=== PATIENT | male | born 1980 | race Caucasian/White ===

== ENCOUNTER 2022-03-25 09:41 | Emergency (ER) | payer OTHER ==
[2022-03-25 10:31] LABS: BASOPHILS # (AUTO) 0.1 10^3/uL (0.0-0.1); BASOPHILS % (AUTO) 0.7 %; EOSINOPHILS # (AUTO) 0.1 10^3/uL (0.0-0.7); HCT - HEMATOCRIT 44.5 % (42.0-52.0); HGB - HEMOGLOBIN 14.7 g/dL (14.0-18.0); LYMPHOCYTES # (AUTO) 2.4 10^3/uL (1.5-3.5); LYMPHOCYTES % (AUTO) 34.6 %; MEAN CORPUSCULAR HEMOGLOBIN 28.5 pg (27.0-31.0); MEAN CORPUSCULAR VOLUME 86.4 fL (80.0-94.0); MEAN PLATELET VOLUME 9.8 fL (7.4-11.4); MONOCYTES # (AUTO) 0.6 10^3/uL (0.0-1.0); MONOCYTES % (AUTO) 8.8 %; NEUTROPHILS # (AUTO) 3.8 10^3/uL (1.5-6.6); NEUTROPHILS % (AUTO) 54.6 %; PLT - PLATELET COUNT 266 10^3/uL (130-450); RED BLOOD COUNT 5.15 10^6/uL (4.70-6.10); RED CELL DISTRIBUTION WIDTH 12.5 % (12.0-15.0)
[2022-03-25 10:46] LABS: ALBUMIN 5.2 g/dL (3.2-5.5); ALBUMIN/GLOBULIN RATIO 1.5 (1.0-2.2); BILIRUBIN,TOTAL 0.8 mg/dL (0.2-1.0); CALCIUM 10.3 mg/dL (8.5-10.3); CREATININE 1.1 mg/dL (0.6-1.2); TOTAL PROTEIN 8.7 g/dL (6.7-8.2)
--- NOTE | 2022-03-25 12:04 | ED Physician Documentation ---
PD HPI ABD PAIN - Stated complaint Stated Complaint: ABD PX - Chief complaint Chief Complaint: Abd Pain - History obtained from History obtained from: Patient - History of Present Illness Timing - onset: How many years ago (6) Timing - duration: Years (6) Quality: Aching, Sharp, Pain Location: RUQ Radiation: Other (Occasionally will radiate towards the back.) Associated symptoms: No: Fever, Nausea, Vomiting, Hematemesis, Diarrhea, Constipation Recently seen: Not recently seen - Additional information Additional information: Patient is a 41-year-old male, active duty [employer] who presents to the emergency department the right upper quadrant pain for the past 6 years. He states he has been seen by [employer] [facility] twice and had 2 negative ultrasounds. He states that occasionally he feels a small bulge in his right upper abdomen that goes away when he presses on it. Nothing seems to make it better or worse. No change with food. No difficulty breathing. No vomiting or diarrhea. No constipation. Has not on medications at home. He states he tried to make an appointment at the [employer] and they directed him to the emergency department for further evaluation today. Review of Systems Constitutional: denies: Fever, Chills GI: denies: Nausea, Vomiting, Diarrhea Skin: denies: Rash Musculoskeletal: denies: Neck pain, Back pain Neurologic: denies: Headache PD PAST MEDICAL HISTORY - Past Medical History Past Medical History: No - Past Surgical History Past Surgical History: No - Present Medications Home Medications: Ambulatory Orders Medication Instructions Recorded Confirmed No Known Home Medications 03/25/22 03/25/22 - Allergies Allergies/Adverse Reactions: Allergies Allergy/AdvReac Type Severity Reaction Status Date / Time No Known Drug Allergies Allergy Verified 03/25/22 10:13 - Living Situation Living Arrangement: reports: At home - Social History Does the pt have substance abuse?: No - Family History Family history: reports: Non contributory PD ED PE NORMAL - Vitals Vital signs reviewed: Yes - General General: Alert and oriented X 3, No acute distress - HEENT HEENT: Moist mucous membranes - Neck Neck: Supple, no meningeal sign - Cardiac Cardiac: RRR - Respiratory Respiratory: No respiratory distress, Clear bilaterally - Abdomen Abdomen: Normal bowel sounds, Soft, Non tender, Non distended - Derm Derm: Warm and dry, No rash - Extremities Extremities: No edema, No calf tenderness / cord - Neuro Neuro: Alert and oriented X 3 Results - Vitals Vitals: Vital Signs - 24 hr 03/25/22 03/25/22 10:08 12:57 Temperature 37.3 C Heart Rate 65 78 Respiratory 16 20 Rate Blood Pressure 129/80 126/78 O2 Saturation 98 100 Oxygen O2 Source Room air - Labs Labs: Laboratory Tests 03/25/22 03/25/22 03/25/22 10:17 10:27 10:27 WBC 7.0 RBC 5.15 Hgb 14.7 Hct 44.5 MCV 86.4 MCH 28.5 MCHC 33.0 RDW 12.5 Plt Count 266 MPV 9.8 Neut # (Auto) 3.8 Lymph # (Auto) 2.4 [place] # (Auto) 0.6 Eos # (Auto) 0.1 Baso # (Auto) 0.1 Absolute Nucleated RBC 0.00 Nucleated RBC % 0.0 Sodium 141 Potassium 4.0 Chloride 102 Carbon Dioxide 31 Anion Gap 8.0 BUN 18 Creatinine 1.1 Estimated GFR (MDRD) 75 L Glucose 82 Calcium 10.3 Total Bilirubin 0.8 AST 23 ALT 27 Alkaline Phosphatase 50 Total Protein 8.7 H Albumin 5.2 Globulin 3.5 Albumin/Globulin Ratio 1.5 Lipase 36 Urine Color YELLOW Urine Clarity CLEAR Urine pH 5.5 Ur Specific [place] 1.025 Urine Protein NEGATIVE Urine Glucose (UA) NEGATIVE Urine Ketones NEGATIVE Urine Occult Blood NEGATIVE Urine Nitrite NEGATIVE Urine Bilirubin NEGATIVE Urine Urobilinogen 0.2 (NORMAL) Ur Leukocyte Esterase NEGATIVE Ur Microscopic Review NOT INDICATED Urine Culture Comments NOT INDICATED - Rads (name of study) CT abdomen pelvis Radiology: Final report received, EMP read contemporaneously, See rad report (No acute abnormality) PD MEDICAL DECISION MAKING - ED course Complexity details: reviewed results, re-evaluated patient, considered differential, d/w patient ED course: Patient is well-appearing, nontoxic. Afebrile. Unclear etiology of his 6 years worth of abdominal pain. Recommend that he follow-up with his doctor for further care. No acute findings on laboratory testing or CT scan. No evidence of hernia on exam currently though he does describe intermittent "bulges" that resolved with pressing on them. Patient is tolerating p.o. without difficulty. Patient counseled regarding signs and symptoms for which I believe and urgent re-evaluation would be necessary. Patient with good understanding of and agreement to plan and is comfortable going home at this time This document was made in part using voice recognition software. While efforts are made to proofread this document, sound alike and grammatical errors may occur. Departure - Departure Disposition: 01 Home, Self Care Clinical Impression: Abdominal pain Qualifiers: Abdominal location: unspecified location Qualified Code(s): R10.9 - Unspecified abdominal pain Condition: Good Instructions: ED Abdominal Pain Unkn Cause Male Follow-Up: your,doctor in 1 week [Other] Comments: [place]. It could be that you have a small hernia in that area that occasionally contains fat that would be causing your pain. This would explain the lump as well. Please follow-up with your doctor for further care. Your laboratory testing and CT scan are normal today. Discharge Date/Time: 03/25/22 13:00
[2022-03-25 12:32] LABS: BILIRUBIN,URINE NEGATIVE (NEGATIVE); GLUCOSE, URINE (UA) NEGATIVE (NEGATIVE); KETONES,URINE (UA) NEGATIVE (NEGATIVE); LEUKOCYTE ESTERASE, URINE NEGATIVE (NEGATIVE); NITRITE,URINE NEGATIVE (NEGATIVE); OCCULT BLOOD,URINE NEGATIVE (NEGATIVE); PH,URINE 5.5 PH (5.0-7.5); PROTEIN,URINE NEGATIVE (NEGATIVE); UROBILINOGEN,URINE 0.2 (NORMAL) E.U./dL (NORMAL)
[2022-03-25 12:43] LABS: CLARITY,URINE CLEAR (CLEAR)
--- NOTE | 2022-03-25 12:44 | CT Report ---
PROCEDURE: CT abdomen and pelvis with contrast INDICATIONS: RUQ abd pain, neg US x 2 CONTRAST: IV CONTRAST: Optiray 320 ml: 100 PO CONTRAST: *NO PO CONTRAST TECHNIQUE: After the administration of contrast, 5 mm thick sections acquired from the diaphragms to the sym physis. 5 mm thick coronal and sagittal reformats were acquired. For radiation dose reduction, the following was used: automated exposure control, adjustment of mA and/or kV according to patient size . COMPARISON: None. FINDINGS: Image quality: Excellent. ABDOMEN: Lung bases: Lung bases are clear. Heart size is normal. Solid organs: Liver and spleen are normal in size and enhancement. Gallbladder unremarkable. Bilia ry system is non dilated. Pancreas enhances normally. No adrenal nodules. Kidneys demonstrate norm al size and enhancement, without hydronephrosis. Peritoneum and bowel: Bowel loops demonstrate normal wall thickness and caliber. No free fluid or a ir. Nodes and vessels: No retroperitoneal or mesenteric adenopathy by size criteria. Aorta and inferior vena cava are normal in size. Miscellaneous: No ventral hernias. PELVIS: Genitourinary: Bladder wall thickness is normal. Miscellaneous: No inguinal hernias or adenopathy. Bones: No suspicious bony lesions. No vertebral body compression fractures. IMPRESSION: Normal CT of the abdomen and pelvis with contrast Reviewed by: Kirk Gilliland MD on 03/25/2022 11:43 AM DEBBY Approved by: Kirk Gilliland MD on 03/25/2022 11:43 AM DEBBY Station ID: [id number]
[2022-03-25 12:59] VITALS: BP 126/78
== END 2022-03-25 13:00 | disposition home or self-care (01) ==
LOC: ED 09:41
DX: R10.11 Right upper quadrant pain (principal)
CPT/HCPCS: 36415; 74177; 80053; 81003; 83690; 85025; 99282; 99284; Q9967; 81001; 87086

== ENCOUNTER 2022-12-29 09:39 | Outpatient (CLI) | payer OTHER ==
--- NOTE | 2022-12-29 16:45 | MRI Report ---
PROCEDURE: SHOULDER WO - RT INDICATIONS: RIGHT SHOULDER PAIN TECHNIQUE: Noncontrast oblique coronal T2 fast spin echo with fat saturation, oblique sagittal T1 spin echo and T2 fast spin echo with fat saturation, axial T1 spin echo and T2 fast spin echo with fat saturation t hrough the shoulder. COMPARISON: None. FINDINGS: Image quality: Excellent. Rotator cuff: Mild T2 signal elevation diffusely throughout the supraspinatus and infraspinatus tendo ns at the humeral insertion sites extending the muscular tendinous junctions, indicating tendinopathy . Low-grade bursal surface fraying of the posterior supraspinatus and anterior infraspinatus tendons at the humeral insertion sites extending the muscular tendinous junctions. Subscapularis and teres mi nor tendons are intact. No rotator cuff atrophy. Bones and bursae: No bone marrow contusions or fractures. Moderate acromioclavicular joint degenerat ion. The acromion demonstrates conventional anatomy, without an os acromiale. Trace subacromial/subd eltoid bursal fluid is present. Capsule and soft tissues: In the absence of intra-articular contrast, the labrum and glenohumeral li gaments appear intact. The long head of the biceps tendon demonstrates normal location and morpholog y. The rotator interval appears normal, without fibrosis. The coracohumeral ligament is normal in t hickness. IMPRESSION: 1. Supraspinatus and infraspinatus tendinopathy with superimposed low-grade bursal surface fraying. 2. Acromioclavicular joint osteoarthritis. 3. Mild subacromial bursitis. Reviewed by: Jena Hickey MD on 12/29/2022 4:44 PM PDT Approved by: Jena Hickey MD on 12/29/2022 4:44 PM PDT Station ID: [id number]
== END 2022-12-29 09:40 | disposition home or self-care (01) ==
LOC: DI 09:39
PROVIDERS: ATTEND Physician Assistant
DX: M75.81 Other shoulder lesions, right shoulder (principal); M19.011 Primary osteoarthritis, right shoulder; M75.51 Bursitis of right shoulder

== ENCOUNTER 2024-02-25 07:30 | Outpatient (CLI) | payer OTHER ==
--- NOTE | 2024-02-25 12:09 | MRI Report ---
PROCEDURE: Thoracic Spine WO INDICATIONS: DORSALGIA, RIGHT SHOULDER PAIN TECHNIQUE: Noncontrast sagittal T1 spine echo and T2 fast spin echo, sagittal STIR, axial T1 and T2 fast spin ec ho through the thoracic spine. COMPARISON: None. FINDINGS: Image quality: Excellent. Alignment and Curvature: There is normal bony alignment. Bone Marrow: Marrow is of normal overall signal. No acute vertebral body compression fractures. Spinal Cord: Visualized spinal cord is normal in size and signal. Paraspinous Soft Tissues: No paravertebral masses. Miscellaneous: On axial images, central canal and foramina appear widely patent at all scanned level s. T6-T7: Mild right para midline posterior disc protrusion abutting the cord without canal stenosis. Re ference sagittal image 12 of T2 series 6. IMPRESSION: 1. No canal stenosis or foraminal stenosis. 2. A small right paracentral disc protrusion at T6-T7 abuts the cord and can be associated with pain. Reviewed by: Hero Perry MD on 02/25/2024 12:07 PM PDT Approved by: Hero Perry MD on 02/25/2024 12:07 PM PDT Station ID: [id number]
== END 2024-02-25 07:31 | disposition home or self-care (01) ==
LOC: DI 07:30
PROVIDERS: ATTEND Family Medicine
DX: M51.14 Intervertebral disc disorders with radiculopathy, thoracic region (principal)